=== PATIENT | female | born 1985 | race Caucasian/White ===

== ENCOUNTER 2021-03-26 08:30 | Inpatient (IN) ==
[2021-03-26] MEDS ORDERED: Metoclopramide 10 MG/2 ML VIAL IVP PRN (08:33)
[2021-03-26] MEDS ORDERED: Azithromycin 500 MG in 0.9 % Sodium Chloride 250 ML IVPB PRN (08:33)
[2021-03-26] MEDS ORDERED: Ondansetron 4 MG/2 ML VIAL IVP PRN (08:33)
[2021-03-26] MEDS ORDERED: Famotidine 20 MG/2 ML VIAL IVP PRN (08:33)
[2021-03-26] MEDS ORDERED: Lidocaine 1% 20 ML MDV ID PRN (08:33)
[2021-03-26] MEDS ORDERED: *HR* Nalbuphine 10 MG/ML AMPUL IV PRN (08:33)
[2021-03-26] MEDS ORDERED: Naloxone 0.4 MG/ML INJ IVP PRN (08:33)
[2021-03-26] MEDS ORDERED: Ringers Solution, Lactated 1,000 ML IVC SCH (08:45)
[2021-03-26] MEDS ORDERED: miSOPROStoL 25 MCG TABLET PO PRN (09:19)
[2021-03-26 09:33] LABS: Basophils % 0.2 %; Eosinophils % 0.2 %; Hematocrit 26.5 % (35.3-44.9); Hemoglobin 7.9 g/dL (11.5-15.4); Immature Granulocytes % 0.4 % (0-4); Lymphocytes # 1.1 K/mcL (0.6-4.6); Lymphocytes % 22.9 %; Mean Corpuscular HGB Conc 29.8 g/dL (31.6-35.5); Mean Corpuscular Hemoglobin 22.3 pg (28.0-33.3); Mean Corpuscular Volume 74.9 fL (83.0-100.0); Monocytes # 0.5 K/mcL (0.0-1.3); Monocytes % 9.8 %; Neutrophils # 3.3 K/mcL (1.6-8.9); Platelet Count 127 K/mcL (140-400); Red Blood Count 3.54 M/mcL (3.82-4.97); Red Cell Distribution Width 16.5 % (11.5-14.5); Segmented Neutrophils % 66.5 %; White Blood Count 4.9 K/mcL (4.3-11.1)
[2021-03-26] MEDS ORDERED: *HR* FentaNYL (PF) 100 MCG/2 ML VIAL EP ONE (09:52)
[2021-03-26] MEDS ORDERED: EPHEDrine 50 MG/ML VIAL IVP PRN (09:52)
[2021-03-26] MEDS ORDERED: Ropivacaine/PF 0.2% 20 ML VIAL EP ONE (09:52)
[2021-03-26 09:53] LABS: Amphetamine Screen,Urine Negative ng/mL (Cutoff=1000); Barbiturate Screen,Urine Negative ng/mL (Cutoff=200); Benzodiazepines Screen,Urine Negative ng/mL (Cutoff=200); Cannabinoid Screen,Urine Negative ng/mL (Cutoff = 50); Cocaine Screen,Urine Negative ng/mL (Cutoff= 300); Opiate Screen,Urine Negative ng/mL (Cutoff=300); Phencyclidine Screen,Urine Negative ng/mL (Cutoff=25)
[2021-03-26] MEDS ORDERED: *HR* FentaNYL (PF) 250 MCG/5 ML VIAL ONE ×2 (09:55→16:07)
[2021-03-26] MEDS ORDERED: Ropivacaine/PF 0.2% 20 ML VIAL ONE (09:55)
[2021-03-26] MEDS ORDERED: Epidural Premix (fent/bupiv) 110 ML EP SCH (10:00)
[2021-03-26 10:17] LABS: Influenza A PCR Negative (Negative); Influenza B PCR Negative (Negative); Resp. Syncytial Virus PCR Negative (Negative); SARS-CoV-2 by PCR (In House) Negative (Negative)
[2021-03-26] MEDS ORDERED: Terbutaline 1 MG/ML VIAL SQ ONE (10:40)
[2021-03-26] MEDS ORDERED: Oxytocin 20 units/ LR 1000 mL 20 UNIT/1,000 ML BAG IVC ONE (16:01)
[2021-03-26] MEDS ORDERED: *HR* FentaNYL (PF) 100 MCG/2 ML VIAL ONE (16:07)
[2021-03-26] MEDS ORDERED: Oxytocin 20 units/ LR 1000 mL 20 UNIT/1,000 ML BAG IVC SCH (19:41)
[2021-03-26] MEDS ORDERED: Ondansetron ODT 4 MG TAB.RAPDIS SL PRN (19:41)
[2021-03-26] MEDS ORDERED: Benzocaine/Menthol 56 GM AEROSOL SPRAY TP PRN (19:41)
[2021-03-26] MEDS ORDERED: Lanolin 7 G OINT...G. TP PRN (19:41)
[2021-03-26] MEDS: Ibuprofen 600 MG TABLET PO SCH (22:27)
[2021-03-27] MEDS: Acetaminophen 325 MG TABLET PO SCH ×5 (00:39→20:25)
[2021-03-27] MEDS: Ibuprofen 600 MG TABLET PO SCH ×4 (04:11→18:09)
[2021-03-27 05:58] LABS: Basophils % 0.1 %; Mean Corpuscular Volume 74.9 fL (83.0-100.0)
[2021-03-27 05:59] LABS: Eosinophils % 0.4 %; Hematocrit 25.7 % (35.3-44.9); Hemoglobin 7.7 g/dL (11.5-15.4); Immature Granulocytes % 0.4 % (0-4); Immature Platelets 22.9 % (1.1-6.1); Lymphocytes # 1.5 K/mcL (0.6-4.6); Lymphocytes % 19.4 %; Mean Corpuscular Hemoglobin 22.4 pg (28.0-33.3); Monocytes % 6.9 %; Nucleated Red Blood Cells 0.3 /100 WBC (0); Platelet Count 114 K/mcL (140-400); Red Blood Count 3.43 M/mcL (3.82-4.97); Red Cell Distribution Width 16.4 % (11.5-14.5); Segmented Neutrophils % 72.8 %; White Blood Count 7.9 K/mcL (4.3-11.1)
[2021-03-27 06:00] LABS: Monocytes # 0.6 K/mcL (0.0-1.3); Neutrophils # 5.8 K/mcL (1.6-8.9)
[2021-03-27] MEDS ORDERED: Prenatal Vit/FA 1 EACH TABLET PO SCH (09:00)
[2021-03-27] MEDS ORDERED: Ringers Solution, Lactated 1,000 ML ONE ×3 (10:52→13:01)
[2021-03-27] MEDS ORDERED: Famotidine 20 MG/2 ML VIAL ONE (10:59)
[2021-03-27] MEDS ORDERED: Morphine Sulfate 2 MG/ML SYRINGE IVP ONE ×2 (11:40→12:37)
[2021-03-27 12:18] LABS: Hemoglobin 9.2 g/dL (11.5-15.4)
[2021-03-27 12:20] LABS: Hematocrit 31.2 % (35.3-44.9); Immature Platelets 22.6 % (1.1-6.1); Mean Corpuscular HGB Conc 29.5 g/dL (31.6-35.5); Mean Corpuscular Hemoglobin 22.3 pg (28.0-33.3); Mean Corpuscular Volume 75.5 fL (83.0-100.0); Nucleated Red Blood Cells 2.7 /100 WBC (0); Red Blood Count 4.13 M/mcL (3.82-4.97); Red Cell Distribution Width 16.5 % (11.5-14.5); White Blood Count 5.5 K/mcL (4.3-11.1)
[2021-03-27 12:37] LABS: Alanine Aminotransferase 20 Units/L (7-52); Albumin 2.8 g/dL (3.5-5.7); Albumin/Globulin Ratio 1.1 (1.1-2.2); Alkaline Phosphatase 167 Units/L (34-104); Aspartate Amino Transferase 39 Units/L (13-39); BUN/Creatinine Ratio 17 (6-26); Bilirubin,Total 0.4 mg/dL (0.3-1.0); Blood Urea Nitrogen 10 mg/dL (6-20); Calcium 8.3 mg/dL (8.6-10.3); Carbon Dioxide 22 mEq/L (23-29); Chloride 106 mEq/L (98-107); Globulin 2.5 g/dL (2.4-3.5); Glucose 65 mg/dL (70-105); Osmolality,Calculated 277 (280-300); Potassium 3.8 mEq/L (3.5-5.1); Sodium 135 mEq/L (136-145); Total Protein 5.3 g/dL (6.4-8.9); eGFR For African Americans > 60 (> 60); eGFR For Non-African Americans > 60 (> 60)
[2021-03-27 12:38] LABS: Platelet Count 89 K/mcL (140-400)
[2021-03-27 12:40] LABS: Anisocytosis 1+ (Not Present); Large Platelets Present (Not Present); Platelet Estimate Decreased (Normal)
[2021-03-27 12:41] LABS: Microcytosis Present (Not Present); Neutrophils # 4.4 K/mcL (1.6-8.9)
[2021-03-27] MEDS ORDERED: methylPREDNISolone 125 MG/2 ML VIAL IVP ONE (12:49)
[2021-03-27 13:15] LABS: INR 0.9; Prothrombin Time 9.7 Seconds (9.4-12.1)
[2021-03-27 13:18] LABS: Activated Partial Thrombo Time 26.1 Seconds (26.0-36.0)
[2021-03-27] MEDS ORDERED: Famotidine 20 MG/2 ML VIAL IVP SCH (23:00)
[2021-03-28] MEDS: Ibuprofen 600 MG TABLET PO SCH ×2 (01:18→08:00)
[2021-03-28 05:54] VITALS: O2SAT 97
[2021-03-28] MEDS: Acetaminophen 325 MG TABLET PO SCH (07:59)
[2021-03-28 08:28] VITALS: BP 101/71; PULSE 58; TEMP 98.2
[2021-03-28 13:35] LABS: Eosinophils % 0.4 %; Nucleated Red Blood Cells 0.5 /100 WBC (0); Red Cell Distribution Width 16.8 % (11.5-14.5)
[2021-03-28 13:37] LABS: Basophils % 0.2 %; Hematocrit 23.3 % (35.3-44.9); Immature Platelets 20.9 % (1.1-6.1); Mean Corpuscular HGB Conc 29.2 g/dL (31.6-35.5); Mean Corpuscular Hemoglobin 22.4 pg (28.0-33.3); Mean Corpuscular Volume 76.6 fL (83.0-100.0); Monocytes % 7.4 %; Neutrophils # 7.2 K/mcL (1.6-8.9); Red Blood Count 3.04 M/mcL (3.82-4.97); White Blood Count 10.1 K/mcL (4.3-11.1)
[2021-03-28 13:47] LABS: Monocytes # 0.8 K/mcL (0.0-1.3); Platelet Count 99 K/mcL (140-400)
[2021-03-28 13:51] LABS: Hemoglobin 6.8 g/dL (11.5-15.4)
== END 2021-03-28 13:16 | disposition home or self-care (01) | DRG 806 ==
LOC: 1NENULAB 08:30 → SUATTDRO 08:30 → 1NENUOBS 20:20
PROVIDERS: ADMIT Obstetrics & Gynecology; ATTEND Internal Medicine